=== PATIENT | female | born 2000 | race Caucasian/White ===

== ENCOUNTER 2024-01-04 10:39 | Emergency (ER) | payer OTHER, SELFPAY ==
[2024-01-04 11:15] VITALS: BP 135/66; PULSE 85; RESP 16; TEMP 36.6; O2SAT 100; BMI 31.3
--- NOTE | 2024-01-04 15:09 | ED_ITS ---
HPI - Back Pain/Injury General Chief Complaint: Back Pain/Injury Stated Complaint: Lighted headed almost passed out Time Seen by Provider: 01/04/24 14:50 Source: patient History of Present Illness HPI Narrative: Patient is a 23-year-old female without significant past medical history presenting today with back pain. She reports it has been ongoing for week or so she does not remember any sort of injury. She initially went to keep the they checked her urine which was negative and did x-ray which was also negative. She has been taking [place] at night to sleep but it has not been helping her. She has no numbness or tingling down her legs no painful frequent urination. It is all across her mid back. She has been trying to stretch it but not helping. Taking ibuprofen intermittently. Last dose was this morning. This morning she reports that she stood up and almost passed out but did not she says it her pain was very bad. Unable to sleep despite taking [place]. Related Data Previous Rx's Medication Instructions Recorded methocarbamol 750 mg tablet 1,500 mg (2 x 750 mg) PO Q12HR #20 01/04/24 tabs Allergies Allergy/AdvReac Type Severity Reaction Status Date / Time No Known Drug Allergies Allergy Verified 01/04/24 11:19 Patient History tobacco type: vaping alcohol intake frequency: a few times a week Substance Use Type: does not use Exam Initial Vital Signs Initial Vital Signs: Vital Signs Temperature 98 F 01/04/24 11:15 Pulse Rate 85 01/04/24 11:15 Respiratory Rate 16 01/04/24 11:15 Blood Pressure 135/66 01/04/24 11:15 Pulse Oximetry 100 01/04/24 11:15 Oxygen Delivery Method Room Air 01/04/24 11:15 GENERAL: Alert well-appearing 23-year-old female HEENT: Head atraumatic,EOMI, pupils reactive, face symmetric, moist mucous membranes CARDIOVASCULAR: Regular rate and rhythm without murmurs, rubs or gallops. RESPIRATORY: Breath sounds equal bilaterally, no wheezes rales or rhonchi. BACK: No vertebral tenderness no step-off mid lumbar pain : No CVA tenderness EXTREMITIES: Normal range of motion, no clubbing or edema. Neurovascularly intact NEUROLOGICAL: Alert and oriented x4.Normal gait and speech. SKIN: Warm, dry, no laceration, no petechiae, no rashes or lesions. Course Orders Ordered: Discontinued Medications Ketorolac Tromethamine (Ketorolac 30 Mg/Ml Vial) 30 mg IM NOW ONE Stop: 01/04/24 15:27 Last Admin: 01/04/24 15:35 Dose: 30 mg Vital Signs Vital signs: Vital Signs - 8 hr 01/04/24 11:15 Temperature 98 F Pulse Rate 85 Respiratory Rate 16 Blood Pressure 135/66 Pulse Oximetry 100 Oxygen Delivery Method Room Air MDM - Back Pain/Injury MDM Narrative Medical decision making narrative: Patient 23-year-old female presents today with ongoing back pain no obvious injury. She would extra previously. No concern for pyelonephritis or UTI. She has no CVA tenderness in his afebrile. Definitely worse with movement and palpation suspect musculoskeletal. She has given a shot of Toradol here in the ED and does methocarbamol Discharge Plan Departure Patient Disposition: Home Clinical Impression: Strain of lumbar region Instructions: DI for Back Strain or Sprain Activity Restrictions/Additional Instructions: *You have been diagnosed with back pain *What to do: Increasing pain *Continue to take medications as directed Ibuprofen 600mg every 6 hours for [id number] pain Methocarbamol 750 mg to 1500 mg every 12 hours if needed for muscle spasm *Follow up with your primary care provider in 2-3 days or call [phone] *Return to ER if you should have increasing back pain numbness tingling weakness loss of urine or any new, worsening or concerning symptoms Prescriptions: New methocarbamol 750 mg tablet 1,500 mg PO Q12HR Qty: 20 0RF Referrals: ProviderTrung [Primary Care Provider] - Stand Alone Forms: Patient Portal/API
[2024-01-04] MEDS: KETOROLAC 30 MG/ML VIAL IM (15:35)
[2024-01-04 15:49] VITALS: BP 122/76; PULSE 84; RESP 16; O2SAT 99
== END 2024-01-04 15:49 | disposition home or self-care (01) ==
PROVIDERS: Emergency Provider Emergency Medicine
DX: S39.012A Strain of muscle, fascia and tendon of lower back, initial encounter (principal)
CPT/HCPCS: 96372; 99283; J1885

== ENCOUNTER 2024-09-15 07:40 | Outpatient (CLI) | payer OTHER, SELFPAY ==
--- NOTE | 2024-09-15 | DI.RAD.S_ITS ---
PROCEDURE: FL GUIDED LUMBAR PUNCTURE LP INDICATIONS: Papilledema COMPARISON: None. TECHNIQUE: The indications, alternatives, benefits, risks, and complications were explained to the patient. Written informed consent was obtained and placed in the chart. The patient was placed in a prone position on the fluoroscopy table, and a level was chosen for percutaneous access under fluoroscopic guidance. The site was prepped and draped in a sterile fashion. After local anaesthetic, a spinal needle was then used to enter the intrathecal space, with return of cerebrospinal fluid. After obtaining sufficient fluid, the needle was then withdrawn, and a bandage applied to the puncture site. FINDINGS: Puncture level: L4-5 Needle: Spinal needle. Opening pressure: 26.2 cm of water. Closing pressure: 18.1 cm of water. CSF volume and description: 12 mL clear fluid Medications: 1% lidocaine for anaesthesia. Complications: None Laboratories: As ordered by referring clinician. IMPRESSION: Successful fluoroscopically guided lumbar puncture. Approved by: Paulie Ferrer M.D. on 09/15/2024 at 10:54
--- NOTE | 2024-09-15 | DI.MRI.S_ITS ---
PROCEDURE: MR OPTIC NRV WWO CON INDICATIONS: Papilledema TECHNIQUE: Noncontrast sagittal T1 spin echo, axial FLAIR, axial gradient echo, axial diffusion and ADC acquired through the brain. Coronal STIR, thin-slice axial T1 spin echo through the orbits. After the administration of contrast, thin-slice axial and coronal T1 spin echo with fat saturation through the orbits, axial and coronal and sagittal T1 spin echo with fat saturation through the brain. COMPARISON: None. FINDINGS: Image quality: Excellent. Orbits: Globes are symmetrical. The optic nerves are normal in size, without abnormal signal or enhancement. No retrobulbar masses or fat abnormalities. The extra-ocular muscles are normal and symmetric in appearance. Lacrimal glands are normal. Optic chiasm is normal. Periorbital soft tissues appear normal. CSF spaces: Ventricles are normal in size and shape. Basal cisterns are patent. No extra-axial fluid collections. Brain: Low-lying cerebellar tonsils approximately 4-5 mm below the foramen magnum. No intracranial bleeds or mass effects. No abnormal intracranial enhancement. Gómez-white matter interface is intact. Diffusion weighted images demonstrate no acute ischemic insults. Pituitary gland appears normal, without sellar or suprasellar masses. Brainstem appears normal. Normal intravascular flow voids are present. Skull and face: Calvarial marrow is normal in signal. Sinuses: Mucous retention cyst in the ethmoid air cells. Sinuses and mastoids are otherwise clear. IMPRESSION: The orbits are normal in appearance. Low-lying cerebellar tonsils approximately 4-5 mm below the foramen magnum. Otherwise, no acute intracranial abnormalities or abnormal intracranial enhancement. Dictated by: Gabriele Gustafson M.D. on 09/15/2024 at 8:56 Approved by: Gabriele Gustafson M.D. on 09/15/2024 at 9:03
[2024-09-15 09:05] VITALS: BP 128/77; PULSE 89; RESP 16; TEMP 36.9; O2SAT 100
[2024-09-15 10:08] VITALS: BP 130/81; PULSE 130; RESP 18; TEMP 36.8; O2SAT 98
[2024-09-15 10:15] VITALS: BP 137/87; PULSE 83; RESP 18; O2SAT 99
[2024-09-15 10:30] VITALS: BP 127/83; PULSE 46; RESP 18; TEMP 36.8; O2SAT 100
[2024-09-15 10:45] VITALS: BP 118/75; PULSE 85; RESP 18; TEMP 36.6; O2SAT 100
[2024-09-15 11:00] VITALS: BP 127/74; PULSE 83; RESP 16; TEMP 36.8; O2SAT 100
[2024-09-15] MEDS: LIDOCAINE 1% 20 ML INJ (11:15)
== END 2024-09-15 11:14 | disposition home or self-care (01) ==
DX: H47.393 Other disorders of optic disc, bilateral (principal)
CPT/HCPCS: 62328; 70543; 70553; A9579

== ENCOUNTER → 2024-10-13 08:42 | Outpatient (CLI) | payer OTHER, SELFPAY ==
--- NOTE | 2024-10-13 08:43 | DI.MRI.S_ITS ---
PROCEDURE: MR ANGIO NECK W CON INDICATIONS: Papilledema/Assess for vascular pathology TECHNIQUE: Axial and sagittal TruFISP through the neck. Coronal dynamic MRA after the administration of contrast in the arterial and venous phases, with rotating 3-dimensional maximum intensity projection (MIP) reformats constructed from subtraction images. COMPARISON: [facility], MR, MR ANGIO HEAD WO CON, 10/13/2024, 9:00. FINDINGS: Image quality: Excellent. 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 The origins of the common carotid arteries appear normal. The calibers and courses of the common carotid arteries are likewise normal. The carotid bifurcations appear normal bilaterally. The internal carotid arteries are widely patent up to the [place]. Posterior circulation: Slight left vertebral artery dominance. The origins of the vertebral arteries are unremarkable. The more superior portions of the vertebral arteries demonstrate normal course and caliber. Vertebral arteries join to form a normal appearing basilar artery. Miscellaneous: Subclavian arteries are patent throughout. Pre-contrast images through the neck demonstrate no soft tissue abnormalities. IMPRESSION: No areas of hemodynamically significant stenosis, vascular occlusion or aneurysmal dilation within the neck vasculature. Any quantitative measurements of stenosis were performed using NASCET criteria. Dictated by: Jemima Hawkins M.D. on 10/13/2024 at 17:04 Approved by: Jemima Hawkins M.D. on 10/13/2024 at 17:05
--- NOTE | 2024-10-13 08:43 | DI.MRI.S_ITS ---
PROCEDURE: MR ANGIO HEAD WO CON INDICATIONS: Papilledema/Assess for vascular pathology TECHNIQUE: Noncontrast axial 3-D [id number] MR angiogram, with 3-dimensional maximum intensity projection (MIP) reformats of the internal carotid arteries and posterior circulation then performed. COMPARISON: [facility], MR, MR ANGIO NECK W CON, 10/13/2024, 9:00. FINDINGS: Image quality: Excellent. Anterior circulation: Intracranial internal carotid arteries demonstrate normal size and intraluminal flow signal. The flow within the paired anterior cerebral arteries is normal and symmetric. The flow within the middle cerebral arteries is normal and symmetric. The anterior communicating artery is seen. No stenoses, occlusions, or aneurysms. Posterior circulation: Slight left vertebral artery dominance. Visualized portions of the vertebral arteries demonstrate normal caliber, and join to form a normal appearing basilar artery. The flow within the posterior cerebral arteries is normal and symmetric. No stenoses, occlusions, or aneurysms. IMPRESSION: No areas of hemodynamically significant stenosis, vascular occlusion or aneurysmal dilation within the anterior circulation. No areas of hemodynamically significant stenosis, vascular occlusion or aneurysmal dilation within the posterior circulation. Dictated by: Jemima Hawkins M.D. on 10/13/2024 at 17:03 Approved by: Jemima Hawkins M.D. on 10/13/2024 at 17:04
== END ==
DX: H47.11 Papilledema associated with increased intracranial pressure (principal)
CPT/HCPCS: 70544; 70549; A9579